=== PATIENT | male | born 1980 | race Caucasian/White ===

== ENCOUNTER → 2022-01-30 08:01 | Outpatient (BNVA) | payer SELFPAY | PROVIDERS: Family Provider Family Medicine; Visit Provider Family Medicine | DX: I10 Essential (primary) hypertension (principal); R60.9 Edema, unspecified | CPT/HCPCS: 80053; 80061; 83721; 83880; 84443; 85025 ==

== ENCOUNTER 2022-02-10 12:47 | Outpatient (CLI) | payer OTHER, SELFPAY ==
--- NOTE | 2022-02-10 13:15 | USCV_ITS ---
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 The following venous structures were evaluated: common femoral vein, profunda vein, proximal portion of the greater saphenous vein, superficial femoral vein, and the popliteal vein. In addition, the posterior tibial and peroneal trunk were evaluated. FINDINGS: Normal 2-D Doppler and augmentation and compressibility throughout the lower extremity venous structures. Additional imaging through the proximal calf veins also reveals no thrombus. Limited evaluation of the greater saphenous vein is patent with no thrombus.. CONCLUSIONS No DVT bilateral lower extremities. Dr. Sujey Allen DO (Electronically Signed) Final Date: 10 February 2022 14:39 S
== END 2022-02-10 12:48 | disposition home or self-care (01) ==
LOC: RAD 12:48
PROVIDERS: Family Provider Family Medicine; Visit Provider Family Medicine
DX: R60.9 Edema, unspecified (principal)
CPT/HCPCS: 93970